=== PATIENT | male | born 1945 | race Caucasian/White ===

== ENCOUNTER → 2021-02-10 | Outpatient (CLI) | payer MEDICARE ==
[~2021-02-10] MED LIST: AMLO-186 PO; LEVE250T30 PO; METO50TA4 PO; OMEP40CA7 PO; SILD20TA4 PO; SIMV20TA18 PO; TRAM50TA PO; TRIA1CAP3 PO; WARF2TAB96 PO
--- NOTE | 2021-02-10 17:24 | CARD ---
MR#: [id number] Date of Study: 02/10/2021 Ordering Physician: ROSALES GREENWOOD, Referring Physician: ROSALES GREENWOOD, Tech: Rehana Crenshaw, [facility] APPROVED REPORT EXAM: Two-dimensional and M-mode echocardiogram with Doppler and color Doppler. Other Information Quality : AverageHR: 57bpm INDICATION Atrial Fibrillation Pre-Op RISK FACTORS Hypertension Hyperlipidemia 2D DIMENSIONS Left Atrium(2D)4.1 (1.6-4.0cm)IVSd1.1 (0.7-1.1cm) Aortic Root(2D)3.4 (2.0-3.7cm)LVDd5.6 (3.9-5.9cm) LVOT Diameter2.2 (1.8-2.4cm)PWd1.2 (0.7-1.1cm) LVDs2.8 (2.5-4.0cm)FS (%) 49.9 % SV122.8 ml Aortic Valve AoV Peak Ceasar.121.0cm/sAoV VTI27.7cm AO Peak GR.5.9mmHgLVOT Peak Ceasar.100.2cm/s LVOT VTI 22.25cmAO Mean GR.3mmHg SAM (VMAX)2.86gu1HOS (VTI)2.97cm2 Mitral Valve MV E Ldryhjnn37.9cm/sMV DECEL PSBI139df MV A Xgzgyqpo00.4cm/sMV E Mean Gr.1mmHg MV ODM248pgM/A Ratio0.5 MVA (PHT)2.13cm2 TDI E/Lateral E'7.4E/Medial E'8.6 Pulmonary Valve PV Peak Gvyieysr20.0cm/sPV Peak Grad.4mmHg Tricuspid Valve TR P. Ovnyptao955am/sRAP OBEBVLHH9euKc TR Peak Gr.44mrLbACFJ53mvEc Pulmonary Vein S1 Ngcjulcv87.7cm/sD2 Bizzuenk44.0cm/s PVa wjlqagld658hrmc LEFT VENTRICLE The left ventricle is normal size. There is mild concentric left ventricular hypertrophy. The left ve ntricular systolic function is normal and the ejection fraction is within normal range. The Ejection Fraction is 50-55%. Wall motion consistent with conduction abnormality. Transmitral Doppler flow rebeca margie is Grade I-abnormal relaxation pattern. RIGHT VENTRICLE The right ventricle is mildly dilated. There is normal right ventricular wall thickness. The right ve ntricular systolic function is normal. ATRIA The left atrium size is normal. The right atrium size is normal. The interatrial septum is intact wit h no evidence for an atrial septal defect or patent foramen ovale as noted on 2-D or Doppler imaging. AORTIC VALVE The aortic valve is mildly to moderately thickened. Doppler and Color Flow revealed trace aortic regu rgitation. There is no significant aortic valvular stenosis. Calculated aortic valve area is 2.6 cm2 with maximum pressure gradient of 7 mmHg and mean pressure gradient of 5 mmHg. MITRAL VALVE The mitral valve is normal in structure and function. There is no evidence of mitral valve prolapse. There is no mitral valve stenosis. Doppler and Color-flow revealed trace mitral regurgitation. TRICUSPID VALVE The tricuspid valve is normal in structure and function. Doppler and Color Flow revealed trace tricus pid regurgitation with an estimated PAP of 23 mmHg. There is no tricuspid valve stenosis. PULMONIC VALVE The pulmonic valve is not well visualized. Doppler and Color Flow revealed trace pulmonic valvular re gurgitation. GREAT VESSELS The aortic root is normal in size. The ascending aorta is mildly dilated measuring 3.8 cm. The IVC is normal in size and collapses >50% with inspiration. PERICARDIAL EFFUSION There is no evidence of significant pericardial effusion. Critical Notification Critical Value: No <Conclusion> The left ventricle is normal size. The left ventricular systolic function is normal and the ejection fraction is within normal range. The Ejection Fraction is 50-55%. There is mild concentric left ventricular hypertrophy. Doppler and Color Flow revealed trace aortic regurgitation. There is no significant aortic valvular stenosis. Doppler and Color-flow revealed trace mitral regurgitation. Doppler and Color Flow revealed trace tricuspid regurgitation with an estimated PAP of 23 mmHg. The ascending aorta is mildly dilated measuring 3.8 cm. Signed by : Isidoro Arteaga MD Electronically Approved : 02/10/2021 17:23:55
== END ==
LOC: ECHO 12:16
PROVIDERS: ATTEND Internal Medicine Cardiovascular Disease
DX: I51.7 Cardiomegaly (principal); I48.0 Paroxysmal atrial fibrillation
CPT/HCPCS: 93306

== ENCOUNTER → 2021-03-10 | Outpatient (CLI) | payer MEDICARE ==
[2021-03-01 15:49] VITALS: BP 150/67
[~2021-03-10] MED LIST changes: +ERTA1VIA16 IJ; +HYDR-2761 PO; +OXYC-325 PO; +TEMA7.5C PO
--- NOTE | 2021-03-10 13:41 | RAD ---
Noncontrast CT scan of the chest, abdomen, and pelvis for renal cell carcinoma, comparison to similar study of the chest dated February 19, 2021 and of the abdomen and pelvis dated February 252020. TECHNIQUE: Contiguous axial CT images are obtained through the chest, abdomen, and pelvis. Sagittal a nd coronal reformations are evaluated. No IV contrast was administered. CHEST FINDINGS: Stable appearing 1.4 cm lung nodule with a small satellite lesion within the superior segment left lower lobe. No new lung nodules or masses. There is new dense consolidation left lung b ase with air bronchograms. There is a peculiar linear air collection extending diagonally from the hi lum towards the lung periphery, that was not present on the prior examination. This is likely air wit hin the pleural space secondary to the small left upper quadrant posterior pigtail catheter which amber ears to transgress the pleural space to some extent. Less likely possible etiologies include reflect air within bronchiectatic airways, or bronchopleural fistula. There is a grossly stable appearing sma ll left pleural effusion. Pleural effusion on the right is resolved. Dense consolidation of the right has resolved. There are areas of patchy parenchymal infiltrate in the right upper lung, and to lesse r extent within the posterior aspect of the superior segment right lower lung. Central airways are pa tent. No suspicious mediastinal, hilar, or axillary lymphadenopathy. Extensive aortic atherosclerosis . Moderate multifocal coronary artery atherosclerosis. Severe degenerative changes of both shoulders. 4 cm ovoid benign-appearing bulky dystrophic calcification anterior to the right glenoid. Severe deg enerative changes throughout spine. DISH. ABDOMINAL/PELVIC FINDINGS: Innumerable removal of the subdiaphragmatic surgical drain. Persistence of the pigtail catheter within the posterior subdiaphragmatic fluid collection which is nearly complete ly evacuated, though a small amount of fluid inferiorly does persist. Along the dorsal aspect of the pancreatic bed, there is a 3.2 cm circumscribed air-fluid collection which appears improved from the prior examination. Evaluation of solid organ was limited by lack of IV contrast. No gross mo rphologic abnormalities of the liver, proximal pancreas, right adrenal gland, or right kidney. Gallbl adder is unremarkable. There are postsurgical changes of distal pancreectomy, splenic vein, and left nephrectomy. No new fluid question identified. No suspicious adenopathy is seen. There is moderate to severe calcified atherosclerosis of the bilateral iliac arteries. Numerous seeds are seen throughout the prostate. Urinary bladder is fluid distended and grossly unremarkable. There are numerous sigmoi d diverticula with no evidence of acute diverticulitis. No gross abnormalities of the large or small bowel, and no evidence of bowel obstruction. Multilevel degenerative changes throughout the lumbar sp ine with no suspicious osteoblastic or osteolytic bone lesions. IMPRESSION: 1. New dense consolidation left lung base, atelectasis versus infiltrate. 2. Peculiar linear air collection within the left lower lung extending towards the pleural surface, w hich was most likely air acute related as a result of the small posterior left upper quadrant pigtail catheter which transgresses the caudal most aspect of the pleural space. Continued attention to this area on follow-up imaging following removal of the pigtail catheter is recommended however, as less likely etiology such as developing bronchiectatic lung with air bronchogram, or bronchopleural fistul a cannot be definitively excluded. 3. Resolved infiltrate in the right lower lung, with new patchy regions of airspace disease concernin g for new infectious pneumonitis. 4. Stable 1.4 cm left lower lobe pulmonary nodule stable small satellite lesion. No new lung nodules or masses. 5. Stable small left pleural effusion. 6. Interval removal of a left upper quadrant posterior surgical drain. 7. Persistent left upper quadrant posterior pigtail catheter within a small left upper quadrant poste rior fluid collection. This fluid collection appears grossly stable or perhaps minimally enlarged, bu t remains quite small. If there is no significant output from this drain, consider abscessogram and p ossible drain removal. 8. Improving 3.4 cm discrete fluid and air pocket along the posterior pancreatic margin. This could b e a small area of residual infectious fluid, however given its improvement on serial imaging, continu ed surveillance is recommended over percutaneous intervention. 9. Postsurgical changes as described with no evidence of local or regional metastatic disease. 10. 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 If this patient has signs or symptoms of lower extremity arterial insufficiency, consider elective referral to an endovascular specialist u foreign complete postsurgical recovery. PQRS Compliance Statement: One or more of the following individualized dose reduction techniques were utilized for this examinat ion: 1. Automated exposure control 2. Adjustment of the mA and/or kV according to patient size 3. Use of iterative reconstruction technique Electronically signed by: Bran Magaña MD (03/10/2021 1:38 PM) [id number]
== END ==
LOC: CT 11:29
PROVIDERS: ATTEND Internal Medicine Hematology & Oncology
DX: C64.2 Malignant neoplasm of left kidney, except renal pelvis (principal); K57.30 Diverticulosis of large intestine without perforation or abscess without bleeding; R91.8 Other nonspecific abnormal finding of lung field; I25.10 Atherosclerotic heart disease of native coronary artery without angina pectoris; I70.8 Atherosclerosis of other arteries
CPT/HCPCS: 71250; 74176

== ENCOUNTER → 2021-03-21 | Outpatient (CLI) | payer MEDICARE ==
[2021-03-01 15:49] VITALS: BP 150/67
[2021-03-21 11:43] LABS: BASO # 0.1 x10^3/uL (0.0-0.2); BASO % 0 % (0-3); EOS # 0.1 x10^3/uL (0.0-0.7); EOS % 1 % (0-3); HEMATOCRIT 30.3 % (39.0-53.0); HEMOGLOBIN 9.9 g/dL (13.0-17.5); LYMPH # 1.7 x10^3/uL (1.0-4.8); LYMPH % 9 % (24-48); MEAN CORPUSCULAR HEMOGLOBIN 30 pg (25-35); MEAN CORPUSCULAR HGB CONC 33 g/dL (31-37); MEAN CORPUSCULAR VOLUME 91 fL (79-100); MONO % 16 % (0-9); NEUT # 13.8 x10^3/uL (1.8-7.7); NEUT % 74 % (31-73); PLATELET COUNT 463 x10^3/uL (140-400); RED BLOOD COUNT 3.32 x10^6/uL (4.30-5.70); RED CELL DISTRIBUTION WIDTH 14.9 % (11.5-14.5); WHITE BLOOD COUNT 18.7 x10^3/uL (4.0-11.0)
[2021-03-21 11:54] LABS: CALCIUM 8.7 mg/dL (8.5-10.1); GFR 32.6; POTASSIUM 3.9 mmol/L (3.5-5.1)
[2021-03-21 12:00] LABS: ALBUMIN 2.3 g/dL (3.4-5.0); ALBUMIN/GLOBULIN RATIO 0.5 (1.0-1.7); TOTAL BILIRUBIN 0.4 mg/dL (0.2-1.0); TOTAL PROTEIN 7.4 g/dL (6.4-8.2)
[2021-03-21 12:22] LABS: % BANDS 3 % (0-9); % LYMPHS 6 % (24-48); % MONOS 11 % (0-10); % SEGS 80 % (35-66); ANISOCYTOSIS SLIGHT; PLT ESTIMATE INCREASED (ADEQUATE)
[2021-03-21 12:23] LABS: POLYCHROMASIA OCCASIONAL
== END ==
LOC: ONCLAB 10:41
PROVIDERS: ATTEND Internal Medicine Hematology & Oncology
DX: C64.2 Malignant neoplasm of left kidney, except renal pelvis (principal)
CPT/HCPCS: 36415; 80053; 85007; 85025